=== PATIENT | male | born 1955 | race Caucasian/White ===

== ENCOUNTER 2017-10-14 08:03 | Emergency (ER) | payer BC ==
[2017-10-14] MEDS ORDERED: solu-MEDROL 125 MG IV ONE (08:41)
[2017-10-14] MEDS ORDERED: DUONEB 0.5-3 MG/3 ml Neb IH ONE ×2 (08:41→08:47)
[2017-10-14] MEDS ORDERED: TYLENOL 325 MG PO ONE (08:46)
--- NOTE | 2017-10-14 08:46 | ERPHSYRPT ---
- History of Present Illness Time Seen by Provider: 10/14/17 08:35 Source: patient Patient Subjective Stated Complaint: Pt states "I think I have that flu bug. Everyone is coming to work sick and now I am coughing, have chills, and body aches." Triage Nursing Assessment: Pt alert and oriented X 3, skin pwd. Pt ambulates without difficulty, able to speak in clear full sentences. 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 He has hx of COPD. He had on hand prednisone, zithromax, and nebs in case he got sick. Over the weekend he wasexposed to someone with flu syndrome and he started taking Zpack and prednisone 20mg daily. On nebs. He has worsened cough, malaise , chills. Some sputum production. He quit smoking several years ago. No V/D. No chest pains. Severity of Dyspnea-Max: moderate Severity of Dyspnea-Current: moderate Allergies/Adverse Reactions: No Known Drug Allergies Allergy (Unverified 10/14/17 08:21) Home Medications: Albuterol Sulfate [Ventolin Hfa] 1 puff IH DAILY 10/14/17 [History] Azithromycin 250 mg [Zithromax 250 MG TABLET] 250 mg PO STAT 10/14/17 [ History] Budesonide/Formoterol Fumarate [Symbicort 160-4.5 Mcg Inhaler] 1 puff IH DAILY 10/14/17 [History] Prednisone 20 mg [Deltasone 20 mg] 40 mg PO DAILY 10/14/17 [History] Promethazine/Dextromethorphan [Promethazine-Dm Syrup] 5 ml PO DAILY 10/14/17 [ History] Tiotropium [place] [Spiriva] 18 mcg IH DAILY 10/14/17 [History] Hx Tetanus, Diphtheria Vaccination/Date Given: Yes Hx Influenza Vaccination/Date Given: No Hx Pneumococcal Vaccination/Date Given: No Immunizations Up to Date: Yes - Review of Systems Constitutional: Chills, Malaise, No Fever Eyes: No Symptoms Ears, Nose, & Throat: Nose Congestion Respiratory: Cough, Wheezing Cardiac: No Chest Pain Abdominal/Gastrointestinal: No Abdominal Pain, No Nausea, No Vomiting, No Diarrhea Genitourinary Symptoms: No Dysuria Skin: No Rash Neurological: No Headache All Other Systems: Reviewed and Negative - Past Medical History Pertinent Past Medical History: Yes Neurological History: No Pertinent History ENT History: No Pertinent History Cardiac History: No Pertinent History Respiratory History: Asthma, COPD, Emphysema Endocrine Medical History: No Pertinent History Musculoskeletal History: No Pertinent History GI Medical History: No Pertinent History History: No Pertinent History Psycho-Social History: No Pertinent History Male Reproductive Disorders: No Pertinent History - Past Surgical History Past Surgical History: Yes Other Surgical History: l4, l5 removed. left knee. left shoulder. nose - Social History Smoking Status: Former smoker Exposure to second hand smoke: Yes Drug Use: none Patient Lives Alone: Yes - Nursing Vital Signs Nursing Vital Signs: Initial Vital Signs Temperature 100.0 F 10/14/17 08:13 Pulse Rate 84 10/14/17 08:13 Respiratory Rate 20 10/14/17 08:13 Blood Pressure 128/70 10/14/17 08:13 O2 Sat by Pulse Oximetry 94 L 10/14/17 08:13 Pain Scale Pain Intensity 0 - Physical Exam General Appearance: alert Eye Exam: PERRL/EOMI Neck Exam: normal inspection, non-tender, supple Respiratory Exam: wheezing (worse on left), No respiratory distress Cardiovascular/Chest Exam: regular rate/rhythm Abdominal/Gastrointestinal Exam: soft, No tenderness, No distention Extremity Exam: no calf tenderness, no pedal edema Neurologic Exam: alert, oriented x 3, cooperative, sensation nml, No motor deficits Skin Exam: warm, dry, No rash SpO2 Interpretation: normal SpO2: 94 Oxygen Delivery: Room Air - Course Nursing assessment & vital signs reviewed: Yes - Radiology Exams cxr X-ray Interpretation: Teleradiologist Report (bibasilar infiltrates/atelectasis/ effusion without CM) Ordered Tests: Active Orders 24 hr Category Date Time Status IV Insertion STAT Care 10/14/17 08:41 Active CHEST 2 VIEWS (PA AND LAT) Stat Exams 10/14/17 08:42 Completed BLOOD CULTURE Stat Lab 10/14/17 09:20 Ordered BMP Stat Lab 10/14/17 08:40 Completed CBC W DIFF Stat Lab 10/14/17 08:40 Completed Lactic Acid Stat Lab 10/14/17 08:50 Completed Manual Differential NC Stat Lab 10/14/17 08:40 Completed VENOUS BLOOD GAS Stat Lab 10/14/17 08:50 Completed Respiratory Nebulizer STAT RT 10/14/17 08:42 Completed Respiratory Nebulizer STAT RT 10/14/17 10:10 Completed Medication Summary Generic Name Dose Route Start Last Admin Trade Name Martín PRN Reason Stop Dose Admin Oseltamivir Phosphate 75 mg 10/14/17 22:00 10/14/17 10:13 Tamiflu 75mg Capsule PO 10/19/17 21:59 75 mg BID MENDOZA Administration Discontinued Medications Generic Name Dose Route Start Last Admin Trade Name Martín PRN Reason Stop Dose Admin Acetaminophen 650 mg 10/14/17 08:46 10/14/17 08:56 Tylenol 325 Mg PO 10/14/17 08:47 650 mg STAT ONE Administration Acetaminophen Confirm 10/14/17 08:54 Tylenol 325 Mg Administered 10/14/17 08:55 Dose 650 mg .ROUTE .STK-MED ONE Albuterol Sulfate 2.5 mg 10/14/17 10:10 10/14/17 10:26 Proventil 2.5 Mg/3 Ml Neb IH 10/14/17 10:11 2.5 mg STAT ONE Administration Albuterol Sulfate Confirm 10/14/17 10:23 Proventil 2.5 Mg/3 Ml Neb Administered 10/14/17 10:24 Dose 2.5 mg IH .STK-MED ONE Albuterol/Ipratropium 3 ml 10/14/17 08:41 10/14/17 08:55 Duoneb 0.5-3 Mg/3 Ml Neb IH 10/14/17 08:42 3 ml STAT ONE Administration Albuterol/Ipratropium Confirm 10/14/17 08:47 Duoneb 0.5-3 Mg/3 Ml Neb Administered 10/14/17 08:48 Dose 3 ml IH .STK-MED ONE Ceftriaxone Sodium/Dextrose 1 g in 50 mls @ 100 mls/hr 10/14/17 09:19 09:43 Rocephin 1 Gm-D5w 50 Ml Bag IV 10/14/17 09:48 100 mls/hr STAT STA Administration Ceftriaxone Sodium/Dextrose Confirm 10/14/17 09:37 Rocephin 1 Gm-D5w 50 Ml Bag Administered 10/14/17 09:38 Dose 1 g in 50 mls @ ud IV .STK-MED ONE Methylprednisolone Sodium Succinate 125 mg 10/14/17 08:41 10/14/17 08:57 Solu-Medrol 125 Mg IV 10/14/17 08:42 125 mg STAT ONE Administration Methylprednisolone Sodium Succinate Confirm 10/14/17 08:54 Solu-Medrol 125 Mg Administered 10/14/17 08:55 Dose 125 mg .ROUTE .STK-MED ONE Lab/Rad Data: Laboratory Result Diagrams 10/14/17 08:40 10/14/17 08:40 Laboratory Results 10/14/17 10/14/17 10/14/17 Range/Units 09:05 08:50 08:40 WBC (4.0-10.5) K/mm3 RBC (4.1-5.6) M/mm3 Hgb (12.5-18.0) gm/dl Hct (42-50) % MCV (78-100) fl MCH (26-32) pg MCHC (32-36) g/dl RDW (11.5-14.0) % Plt Count (150-450) K/mm3 MPV (6-9.5) fl Segmented Neutrophils (36.-66.) % Lymphocytes (Manual) (24-44) % Monocytes (Manual) (0.0-12.0) % Eosinophils (Manual) (0.00-3.0) % Differential Comment Platelet Estimate (NORMAL) VBG pH 7.42 (7.32-7.42) VBG pCO2 at Pat Temp 41 L (42-55) mm/Hg VBG pO2 at Pat Temp 41 H (25-40) mm/Hg VBG HCO3 26.6 (22-28) meq/L VBG O2 Sat ([place]) 84.3 L (95-100) VBG Base Excess 1.9 (-2.0-2.0) VBG Hemoglobin 12.8 VBG Carboxyhemoglobin 1.8 (0.0-6.9) % T HGB POC Potassium 3.8 (3.5-5.1) Sodium 139 (136-145) mEq/L Potassium 3.8 (3.5-5.1) mEq/L Chloride 105 (98-107) mEq/L Carbon Dioxide 25.6 (21-32) mEq/L Anion Gap 12.4 (5-15) MEQ/L BUN 16 (9-20) mg/dL Creatinine 0.81 (0.55-1.30) mg/dl Estimated GFR > 60 ML/MIN Glucose 147 H (70-110) MG/DL Lactic Acid 0.9 (0.4-2.0) Calcium 8.3 L (8.5-10.1) mg/dL Influenza Type A Ag POSITIVE (NEGATIVE) Influenza Type B Ag NEGATIVE (NEGATIVE) RSV (PCR) NEGATIVE (Negative) 10/14/17 Range/Units 08:40 WBC 5.5 (4.0-10.5) K/mm3 RBC 4.63 (4.1-5.6) M/mm3 Hgb 12.4 L (12.5-18.0) gm/dl Hct 39.5 L (42-50) % MCV 85.3 (78-100) fl MCH 26.7 (26-32) pg MCHC 31.4 L (32-36) g/dl RDW 14.9 H (11.5-14.0) % Plt Count 195 (150-450) K/mm3 MPV 10.0 H (6-9.5) fl Segmented Neutrophils 84 H (36.-66.) % Lymphocytes (Manual) 14 L (24-44) % Monocytes (Manual) 1 (0.0-12.0) % Eosinophils (Manual) 1 (0.00-3.0) % Differential Comment NORMAL Platelet Estimate NORMAL (NORMAL) VBG pH (7.32-7.42) VBG pCO2 at Pat Temp (42-55) mm/Hg VBG pO2 at Pat Temp (25-40) mm/Hg VBG HCO3 (22-28) meq/L VBG O2 Sat ([place]) (95-100) VBG Base Excess (-2.0-2.0) VBG Hemoglobin VBG Carboxyhemoglobin (0.0-6.9) % T HGB POC Potassium (3.5-5.1) Sodium (136-145) mEq/L Potassium (3.5-5.1) mEq/L Chloride (98-107) mEq/L Carbon Dioxide (21-32) mEq/L Anion Gap (5-15) MEQ/L BUN (9-20) mg/dL Creatinine (0.55-1.30) mg/dl Estimated GFR ML/MIN Glucose (70-110) MG/DL Lactic Acid (0.4-2.0) Calcium (8.5-10.1) mg/dL Influenza Type A Ag (NEGATIVE) Influenza Type B Ag (NEGATIVE) RSV (PCR) (Negative) - Progress Progress Note: 10/14/17 10:43 Feeling better after nebs. He has flu a with some pneumonia and COPD exac. He wants OP treatment. Will release with inst. Counseled pt/family regarding: lab results, diagnosis, need for follow-up, rad results - Departure Time of Disposition: 10:43 Departure Disposition: Home Clinical Impression: Influenza A, COPD exacerbation Condition: Fair Critical Care Time: No Referrals: DOCTOR,NO FAMILY [Primary Care Provider] - Instructions: Exacerbation of COPD (DC), Flu, Adult (DC) Additional Instructions: Rx ceftin. Rx prednisone to take 40mg every day for 3 days, 20mg a day for 3 days then 10 mg a day for 4 days. Rx tamiflu. Use your nebs every 4 hours. Off work until fever free for 24 hours and feeling better. Return for problems or concerns. Prescriptions: Cefuroxime Axetil 500 mg [Ceftin 500 mg] 1 tab PO BID #20 tablet Oseltamivir 75 mg [Tamiflu 75MG Capsule] 75 mg PO BID #9 cap Prednisone 20 mg [Deltasone 20 mg] 0 mg PO UD #20 tablet
[2017-10-14 08:52] LABS: Lactic Acid 0.9 (0.4-2.0); VBG BASE EXCESS 1.9 (-2.0-2.0); VBG CARBOXYHEMOGLOBIN 1.8 % T HGB (0.0-6.9); VBG HCO3- 26.6 meq/L (22-28); VBG HEMOGLOBIN 12.8; VBG O2 SATURATION 84.3 (95-100); VBG POTASSIUM 3.8 (3.5-5.1); VBG pH 7.42 (7.32-7.42)
[2017-10-14] MEDS ORDERED: solu-MEDROL 125 MG ONE (08:54)
[2017-10-14] MEDS ORDERED: TYLENOL 325 MG ONE (08:54)
[2017-10-14 09:01] LABS: Hematocrit 39.5 % (42-50); Hemoglobin 12.4 gm/dl (12.5-18.0); Mean Cell Volume 85.3 fl (78-100); Mean Corpuscular Hgb Concent. 31.4 g/dl (32-36); Platelet Count 195 K/mm3 (150-450); Red Blood Count 4.63 M/mm3 (4.1-5.6); Red Cell Distribution Width 14.9 % (11.5-14.0); White Blood Count 5.5 K/mm3 (4.0-10.5)
--- NOTE | 2017-10-14 09:04 | XRAY ---
Indication: Cough and short of breath. Comparison: None PA/lateral chest hyperinflated with small bibasilar effusions and adjacent infiltrates/atelectasis. Upper lungs clear. Heart is not enlarged. Vascularity is normal. Bony thorax intact with mild degenerative changes and previous left shoulder surgery. Impression: Bibasilar infiltrates/atelectasis/effusion without cardiomegaly.
[2017-10-14 09:16] LABS: Mean Corpuscular Hemoglobin 26.7 pg (26-32)
[2017-10-14] MEDS ORDERED: ROCEPHIN 1 Gm-D5w 50 ml Bag** 1 G/50 ML IVPB IV STA (09:19)
[2017-10-14 09:30] LABS: ANION GAP 12.4 MEQ/L (5-15); BLOOD UREA NITROGEN 16 mg/dL (9-20); CHLORIDE 105 mEq/L (98-107); Calcium 8.3 mg/dL (8.5-10.1); Carbon Dioxide 25.6 mEq/L (21-32); Creatinine 1 0.81 mg/dl (0.55-1.30); EST GLOMERULAR FILTRATION RATE > 60 ML/MIN; Glucose 147 MG/DL (70-110); Potassium 3.8 mEq/L (3.5-5.1); SODIUM 139 mEq/L (136-145)
[2017-10-14] MEDS ORDERED: ROCEPHIN 1 Gm-D5w 50 ml Bag** 1 G/50 ML IVPB IV ONE (09:37)
[2017-10-14 10:00] LABS: INFLUENZA A POSITIVE (NEGATIVE); INFLUENZA B NEGATIVE (NEGATIVE); RESPIRATORY SYNCTIAL VIRUS NEGATIVE (Negative)
[2017-10-14] MEDS ORDERED: PROVENTIL 2.5 MG/3 ML NEB IH ONE ×2 (10:10→10:23)
[2017-10-14] MEDS ORDERED: Tamiflu 75MG Capsule PO ONE (10:12)
[2017-10-14 10:32] LABS: Eosinophil 1 % (0.00-3.0); Lymphocytes 14 % (24-44); Monocyte 1 % (0.0-12.0); Neutrophils 84 % (36.-66.); Platelet Estimate NORMAL (NORMAL); Total Cells Counted 100
[2017-10-14 11:01] VITALS: BP 110/76; PULSE 76; O2SAT 96
[2017-10-14] MEDS ORDERED: Tamiflu 75MG Capsule PO SCH (22:00)
== END 2017-10-14 11:02 | disposition home or self-care (01) ==
LOC: ED 08:03
DX: J10.1 Influenza due to other identified influenza virus with other respiratory manifestations (principal); J44.1 Chronic obstructive pulmonary disease with (acute) exacerbation; J45.909 Unspecified asthma, uncomplicated; Z87.891 Personal history of nicotine dependence; Z79.899 Other long term (current) drug therapy
CPT/HCPCS: 36000; 36415; 71046; 80048; 82805; 83605; 85025; 87040; 87631; 94640; 96365; 99284; 99285; J0696; J2930; A9270-GY

== ENCOUNTER 2017-10-19 10:00 | Observation (INO) | payer BC ==
[2017-10-19] MEDS ORDERED: DUONEB 0.5-3 MG/3 ml Neb IH ONE ×2 (10:19→10:36)
[2017-10-19] MEDS ORDERED: solu-MEDROL 125 MG IV ONE (10:43)
[2017-10-19] MEDS ORDERED: Sodium Chloride 0.9% 1000 ML 1,000 ML IV STA (10:43)
--- NOTE | 2017-10-19 10:45 | ERPHSYRPT ---
- History of Present Illness Time Seen by Provider: 10/19/17 10:39 Source: patient Exam Limitations: no limitations Patient Subjective Stated Complaint: came in to er friday was diagnosed with influenze A took tamiflu and he has gotten worse in past 24 hrs Triage Nursing Assessment: pt alert and oriented x3, ambulates by self, gait is steady, pupils perrla3, patietn has wheezes bilateral anterior, course on right side, skin wamr dry and intact, mole on chest by breast bone, no other open areas noted, pulses equal bialteral radius. bowel sounds present x4, intermittant dry cough. Physician History: The patient is a 62-year-old male complaining of increasing shortness of breath for the past 2 days. 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 He has a history of COPD. He was seen in this ER on Friday and was diagnosed with influenza A infection. He did not receive his influenza vaccination this year. He was given Solu-Medrol and albuterol breathing treatments and sent home with prescriptions for Ceftin, steroids, and Tamiflu. He was feeling better on Friday and . By Friday he started to feel worse again. He has a dry cough again. His past medical history is significant only for COPD. Timing/Duration: day(s) (2), gradual onset, worse Activities at Onset: none Severity of Dyspnea-Max: moderate Severity of Dyspnea-Current: moderate Possible Cause: occasional episodes Modifying Factors: Improves With: albuterol inhaler Associated Symptoms: cough, wheezing, No productive cough Allergies/Adverse Reactions: No Known Drug Allergies Allergy (Unverified 10/14/17 08:21) Home Medications: Albuterol Sulfate [Ventolin Hfa] 1 puff IH DAILY 10/14/17 [History] Azithromycin 250 mg [Zithromax 250 MG TABLET] 250 mg PO STAT 10/14/17 [ History] Budesonide/Formoterol Fumarate [Symbicort 160-4.5 Mcg Inhaler] 1 puff IH DAILY 10/14/17 [History] Prednisone 20 mg [Deltasone 20 mg] 40 mg PO DAILY 10/14/17 [History] Promethazine/Dextromethorphan [Promethazine-Dm Syrup] 5 ml PO DAILY 10/14/17 [ History] Tiotropium [place] [Spiriva] 18 mcg IH DAILY 10/14/17 [History] Hx Tetanus, Diphtheria Vaccination/Date Given: Yes Hx Influenza Vaccination/Date Given: No Hx Pneumococcal Vaccination/Date Given: No Immunizations Up to Date: Yes - Review of Systems Constitutional: No Fever, No Chills Eyes: No Symptoms Ears, Nose, & Throat: No Symptoms Respiratory: Cough, Dyspnea, Dyspnea on Exertion (SEE), Wheezing Cardiac: No Chest Pain, No Edema, No Syncope Abdominal/Gastrointestinal: No Abdominal Pain, No Nausea, No Vomiting, No Diarrhea Genitourinary Symptoms: No Dysuria Musculoskeletal: No Back Pain, No Neck Pain Skin: No Rash Neurological: No Dizziness, No Focal Weakness, No Sensory Changes Psychological: No Symptoms Endocrine: No Symptoms Hematologic/Lymphatic: No Symptoms Immunological/Allergic: No Symptoms All Other Systems: Reviewed and Negative - Past Medical History Pertinent Past Medical History: Yes Neurological History: No Pertinent History ENT History: No Pertinent History Cardiac History: No Pertinent History Respiratory History: Asthma, COPD, Emphysema Endocrine Medical History: No Pertinent History Musculoskeletal History: No Pertinent History GI Medical History: No Pertinent History History: No Pertinent History Psycho-Social History: No Pertinent History Male Reproductive Disorders: No Pertinent History - Past Surgical History Past Surgical History: Yes Other Surgical History: l4, l5 removed. left knee. left shoulder. nose - Social History Smoking Status: Former smoker Exposure to second hand smoke: Yes Drug Use: none Patient Lives Alone: No - Nursing Vital Signs Nursing Vital Signs: Initial Vital Signs Temperature 99.4 F 10/19/17 10:00 Pulse Rate 85 10/19/17 10:00 Respiratory Rate 18 10/19/17 10:00 Blood Pressure 124/70 10/19/17 10:00 O2 Sat by Pulse Oximetry 93 L 10/19/17 10:00 Pain Scale Pain Intensity 0 - Physical Exam General Appearance: mild distress Eye Exam: PERRL/EOMI Ears, Nose, Throat Exam: hearing grossly normal Neck Exam: normal inspection, supple Respiratory Exam: diminished breath sounds, wheezing Cardiovascular/Chest Exam: normal heart sounds, regular rate/rhythm Abdominal/Gastrointestinal Exam: soft, No tenderness, No distention, No mass Rectal Exam: not done Extremity Exam: non-tender, normal range of motion, normal inspection, no calf tenderness, no pedal edema Neurologic Exam: alert, oriented x 3, 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, 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, sensation nml, No motor deficits Skin Exam: normal color, warm, No dry SpO2 Interpretation: normal SpO2: 93 Oxygen Delivery: Room Air - Radiology Exams Chest X-ray Interpretation: Interpreted by me, Infiltrates, Other (unchanged pleural effusions, bibasilar infiltrates/atelacstasis, comp CXR 10/14/17.) Ordered Tests: Active Orders 24 hr Category Date Time Status IV Insertion STAT Care 10/19/17 10:43 Active Oxygen-ED Only NASAL CANNULA 2 lpm Care 10/19/17 10:43 Active CHEST 2 VIEWS (PA AND LAT) Stat Exams 10/19/17 10:44 Taken CBC W DIFF Stat Lab 10/19/17 10:20 Completed CMP Stat Lab 10/19/17 10:20 Completed Lactic Acid Urgent Lab 10/19/17 10:36 Completed Manual Differential NC Stat Lab 10/19/17 10:20 Completed NT PRO BNP Stat Lab 10/19/17 10:20 Completed Respiratory Nebulizer STAT RT 10/19/17 10:36 Completed Medication Summary Discontinued Medications Generic Name Dose Route Start Last Admin Trade Name Freq PRN Reason Stop Dose Admin Albuterol/Ipratropium Confirm 10/19/17 10:19 Duoneb 0.5-3 Mg/3 Ml Neb Administered 10/19/17 10:20 Dose 3 ml IH .STK-MED ONE Albuterol/Ipratropium 3 ml 10/19/17 10:36 10/19/17 10:37 Duoneb 0.5-3 Mg/3 Ml Neb IH 10/19/17 10:37 3 ml STAT ONE Administration Sodium Chloride 1,000 mls @ 999 mls/hr 10/19/17 10:43 10/19/17 11:10 Sodium Chloride 0.9% 1000 Ml IV 10/19/17 11:43 999 mls/hr .Q1H1M STA Administration Sodium Chloride Confirm 10/19/17 10:57 Sodium Chloride 0.9% 1000 Ml Administered 10/19/17 10:58 Dose 1,000 mls @ ud .ROUTE .STK-MED ONE Methylprednisolone Sodium Succinate 125 mg 10/19/17 10:43 10/19/17 11:10 Solu-Medrol 125 Mg IV 10/19/17 10:44 125 mg STAT ONE Administration Methylprednisolone Sodium Succinate Confirm 10/19/17 10:57 Solu-Medrol 125 Mg Administered 10/19/17 10:58 Dose 125 mg .ROUTE .STK-MED ONE Lab/Rad Data: Laboratory Result Diagrams 10/19/17 10:20 10/19/17 10:20 Laboratory Results 10/19/17 10/19/17 10/19/17 Range/Units 10:36 10:20 10:20 WBC 11.6 H (4.0-10.5) K/mm3 RBC 4.69 (4.1-5.6) M/mm3 Hgb 12.7 (12.5-18.0) gm/dl Hct 39.6 L (42-50) % MCV 84.4 (78-100) fl MCH 27.1 (26-32) pg MCHC 32.1 (32-36) g/dl RDW 14.7 H (11.5-14.0) % Plt Count 215 (150-450) K/mm3 MPV 10.1 H (6-9.5) fl Segmented Neutrophils 76 H (36.-66.) % Lymphocytes (Manual) 16 L (24-44) % Monocytes (Manual) 8 (0.0-12.0) % Differential Comment NORMAL Platelet Estimate NORMAL (NORMAL) Sodium 141 (136-145) mEq/L Potassium 3.5 (3.5-5.1) mEq/L Chloride 103 (98-107) mEq/L Carbon Dioxide 27.0 (21-32) mEq/L Anion Gap 14.7 (5-15) MEQ/L BUN 12 (9-20) mg/dL Creatinine 0.80 (0.55-1.30) mg/dl Estimated GFR > 60 ML/MIN Glucose 259 H (70-110) MG/DL Lactic Acid 1.8 (0.4-2.0) Calcium 8.3 L (8.5-10.1) mg/dL Total Bilirubin 0.70 (0.2-1.0) mg/dL AST 14 L (15-37) U/L ALT 22 (12-78) U/L Alkaline Phosphatase 43 L (46-116) U/L NT-Pro-B Natriuret Pep 338 H (0-125) pg/ml Serum Total Protein 6.7 (6.4-8.2) gm/dL Albumin 2.8 L (3.4-5.0) g/dL - Progress Progress: improved Air Movement: good Blood Culture(s) Obtained: Yes Antibiotics given: No Discussed with DrJohana: Cyndy Cha Will see patient in: hospital (observation) Counseled pt/family regarding: lab results, diagnosis, rad results - Departure Time of Disposition: 13:12 Departure Disposition: Observation (per Dr Cyndy Hartman) Clinical Impression: Dyspnea, COPD (chronic obstructive pulmonary disease), CHF (congestive heart failure), Influenza A Condition: Stable Critical Care Time: No Referrals: DOCTOR,NO FAMILY [Primary Care Provider] - Instructions: Chronic Obstructive Pulmonary Disease, Heart Failure
[2017-10-19] MEDS ORDERED: solu-MEDROL 125 MG ONE (10:57)
[2017-10-19] MEDS ORDERED: Sodium Chloride 0.9% 1000 ML 1,000 ML ONE (10:57)
[2017-10-19 11:03] LABS: Granulocyte Absolute (ANC) 9.66 (1.4-6.9); Hematocrit 39.6 % (42-50); Hemoglobin 12.7 gm/dl (12.5-18.0); Mean Cell Volume 84.4 fl (78-100); Mean Corpuscular Hemoglobin 27.1 pg (26-32); Mean Corpuscular Hgb Concent. 32.1 g/dl (32-36); Mean Platelet Volume 10.1 fl (6-9.5); Platelet Count 215 K/mm3 (150-450); Red Blood Count 4.69 M/mm3 (4.1-5.6); Red Cell Distribution Width 14.7 % (11.5-14.0); White Blood Count 11.6 K/mm3 (4.0-10.5)
[2017-10-19 11:30] LABS: ALBUMIN 2.8 g/dL (3.4-5.0); ALKALINE PHOSPHATASE 43 U/L (46-116); ANION GAP 14.7 MEQ/L (5-15); BLOOD UREA NITROGEN 12 mg/dL (9-20); CHLORIDE 103 mEq/L (98-107); Calcium 8.3 mg/dL (8.5-10.1); EST GLOMERULAR FILTRATION RATE > 60 ML/MIN; Glucose 259 MG/DL (70-110); NT PRO BNP 338 pg/ml (0-125); Potassium 3.5 mEq/L (3.5-5.1); SGOT/AST 14 U/L (15-37); SGPT/ALT 22 U/L (12-78); SODIUM 141 mEq/L (136-145); Total Protein 6.7 gm/dL (6.4-8.2)
[2017-10-19 11:37] LABS: Lymphocytes 16 % (24-44); Monocyte 8 % (0.0-12.0); Neutrophils 76 % (36.-66.); Platelet Estimate NORMAL (NORMAL); Total Cells Counted 100
[2017-10-19] MEDS ORDERED: Zofran 4 MG/2 ML VIAL IV PRN (13:57)
[2017-10-19] MEDS ORDERED: TYLENOL 325 MG PO PRN (13:57)
[2017-10-19] MEDS ORDERED: PROVENTIL 2.5 MG/3 ML NEB IH SCH (15:00)
[2017-10-19] MEDS: DUONEB 0.5-3 MG/3 ml Neb IH SCH ×2 (15:07→18:50)
[2017-10-19] MEDS ORDERED: solu-MEDROL 40 MG IV SCH (15:45)
[2017-10-19] MEDS: Lasix 40 MG/4 ML IV SCH (16:03)
[2017-10-19] MEDS ORDERED: Robitussin-Dm Syrup PO PRN (16:36)
--- NOTE | 2017-10-19 20:52 | XRAY ---
Indication: Cough and short of breath. Comparison: October 14, 2017. PA/lateral chest unchanged again hyperinflated with bibasilar infiltrates/atelectasis/effusions. Heart and mediastinal structures within normal limits. No new abnormalities.
[2017-10-19] MEDS: Tamiflu 75MG Capsule PO SCH (21:08)
[2017-10-19] MEDS: solu-MEDROL 40 MG IV SCH (21:09)
[2017-10-19] MEDS: NovoLOG Insulin SQ PRN (21:09)
[2017-10-19] MEDS: PROVENTIL 2.5 MG/3 ML NEB IH PRN (23:35)
[2017-10-20] MEDS: solu-MEDROL 40 MG IV SCH ×3 (05:03→21:20)
[2017-10-20 05:44] LABS: A-aADO2 112; ABG HEMOGLOBIN 13.7; ABG POTASSIUM 4.2 (3.5-5.1); ABG SITE LEFT RADIAL; ALLEN TEST OK? YES; ARTERIAL BLD GAS O2 SATURATION 98.4 % (95-100); ARTERIAL BLOOD GAS BASE EXCESS 4.8 (-2.0-2.0); ARTERIAL BLOOD GAS FIO2 36 %; ARTERIAL BLOOD GAS PCO2 45 mmHg (35-45); ARTERIAL BLOOD GAS PO2 88 mmHg (75-100); ARTERIAL BLOOD GAS pH 7.43 (7.35-7.45); CARBOXYHEMOGLOBIN 1.5 % THgb (0.0-6.9); HCO3- 29.9 (22-28); HGB O2 SAT 96.3 g/dF (94-100); Methhemoglobin 0.7 % (1.4-1.5); paO2 pAO1 0.44
[2017-10-20 06:19] LABS: Granulocyte Absolute (ANC) 15.12 (1.4-6.9); Hematocrit 41.2 % (42-50); Hemoglobin 13.2 gm/dl (12.5-18.0); Mean Cell Volume 84.3 fl (78-100); Mean Platelet Volume 10.1 fl (6-9.5); Platelet Count 249 K/mm3 (150-450); Red Blood Count 4.89 M/mm3 (4.1-5.6); Red Cell Distribution Width 14.6 % (11.5-14.0); White Blood Count 16.9 K/mm3 (4.0-10.5)
[2017-10-20 06:24] LABS: ANION GAP 12.3 MEQ/L (5-15); BLOOD UREA NITROGEN 14 mg/dL (9-20); CHLORIDE 105 mEq/L (98-107); Calcium 9.2 mg/dL (8.5-10.1); Carbon Dioxide 28.6 mEq/L (21-32); Creatinine 1 0.74 mg/dl (0.55-1.30); EST GLOMERULAR FILTRATION RATE > 60 ML/MIN; Glucose 277 MG/DL (70-110); Potassium 4.2 mEq/L (3.5-5.1); SODIUM 142 mEq/L (136-145)
[2017-10-20] MEDS: ADVAIR 250-50 DISKUS 14 DOSE IH SCH ×2 (07:20→19:23)
[2017-10-20] MEDS: DUONEB 0.5-3 MG/3 ml Neb IH SCH ×4 (07:20→19:23)
--- NOTE | 2017-10-20 09:18 | XRAY ---
Indication: Cough, congestion, and chest tightness. Flu. Comparison: One day earlier. PA/lateral chest unchanged again hyperinflated with bibasilar infiltrates/atelectasis/effusions again left greater than right. Heart is not enlarged. No new cardiopulmonary abnormalities.
[2017-10-20] MEDS ORDERED: ROCEPHIN 1 Gm-D5w 50 ml Bag** 1 G/50 ML IVPB IV SCH (10:00)
[2017-10-20] MEDS ORDERED: Zithromax 500 MG/ 250 ML NaCl Premix 500 MG/250 ML IVPB IV SCH (10:00)
[2017-10-20] MEDS ORDERED: Ventolin Hfa MDI IH SCH (10:00)
[2017-10-20] MEDS: Tamiflu 75MG Capsule PO SCH ×2 (10:17→21:22)
[2017-10-20] MEDS: ENOXAPARIN SODIUM SQ SCH (10:17)
[2017-10-20] MEDS: Lasix 40 MG/4 ML IV SCH ×2 (10:18→16:50)
[2017-10-20 11:04] LABS: BAND 8 % (0.0-2.0); Neutrophils 92 % (36.-66.); Platelet Estimate NORMAL (NORMAL)
[2017-10-20] MEDS: Spiriva 18 Mcg/Cap Inhaler IH SCH (11:13)
[2017-10-20] MEDS: NovoLOG Insulin SQ PRN ×3 (11:34→21:49)
--- NOTE | 2017-10-20 11:55 | PCM.HP ---
History of Present Illness - Chief Complaint Chief Complaint: fever cough and shortness of breath for 2-3 days History of Present Illness: is a 62 year old male complaining of increasing shortness of breath for the past 2 days. 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 He has a history of COPD. He was seen in this ER on Friday and was diagnosed with influenza A infection. He did not receive his influenza vaccination this year. He was given Solu-Medrol and albuterol breathing treatments and sent home with prescriptions for Ceftin, steroids, and Tamiflu. He was feeling better on Friday and . By Friday he started to feel worse again. He has a dry cough again. - Review of Systems Constitutional: Fever, Chills, Malaise Eyes: No Symptoms Ears, Nose, & Throat: No Symptoms Respiratory: Cough, Orthopnea, Short Of Breath, Wheezing Cardiac: No Chest Pain, No Edema, No Syncope Abdominal/Gastrointestinal: No Abdominal Pain, No Nausea, No Vomiting, No Diarrhea Genitourinary Symptoms: No Dysuria Musculoskeletal: No Back Pain, No Neck Pain Skin: No Rash Neurological: No Dizziness, No Focal Weakness, No Sensory Changes Psychological: No Symptoms Endocrine: No Symptoms Hematologic/Lymphatic: No Symptoms Immunological/Allergic: No Symptoms Medications & Allergies Home Medications: Home Medication List Albuterol Sulfate [Ventolin Hfa] 1 puff IH DAILY 10/14/17 [History Confirmed ] Budesonide/Formoterol Fumarate [Symbicort 160-4.5 Mcg Inhaler] 1 puff IH DAILY 10/14/17 [History Confirmed 10/19/17] Cefuroxime Axetil 500 mg [Ceftin 500 mg] 1 tab PO BID #20 tablet 10/14/17 [Rx Confirmed 10/19/17] Oseltamivir 75 mg [Tamiflu 75MG Capsule] 75 mg PO BID #9 cap 10/14/17 [Rx Confirmed 10/19/17] Prednisone 20 mg [Deltasone 20 mg] 40 mg PO DAILY 10/14/17 [History Confirmed 10/19/17] Promethazine/Dextromethorphan [Promethazine-Dm Syrup] 5 ml PO Q4HPRN PRN [History Confirmed 10/19/17] Tiotropium [place] [Spiriva] 18 mcg IH DAILY 10/14/17 [History Confirmed ] Allergies/Adverse Reactions: Allergies Allergy/AdvReac Type Severity Reaction Status Date / Time No Known Drug Allergies Allergy Unverified 10/14/17 08:21 - Past Medical History Past Medical History: Yes Neurological History: No Pertinent History ENT History: No Pertinent History Cardiac History: No Pertinent History Respiratory History: Asthma, COPD, Emphysema Endocrine Medical History: No Pertinent History Musculoskelatal History: No Pertinent History GI Medical History: No Pertinent History History: No Pertinent History Pyscho-Social History: No Pertinent History Male Reproductive Disorders: No Pertinent History - Past Surgical History Past Surgical History: Yes Other Surgical History: l4, l5 removed. left knee. left shoulder. nose - Social History Smoking Status: Former smoker How long have you smoked: 30 Exposure to second hand smoke: No Alcohol: None Drug Use: none - Physical Exam Vital Signs: Vital Signs - 24 hr Temp Pulse Resp BP Pulse Ox 10/20/17 11:17 70 18 95 10/20/17 11:14 98.9 F 73 20 122/73 94 L 10/20/17 07:38 98.3 F 78 22 129/67 92 L 10/20/17 07:35 72 20 94 L 10/20/17 06:00 20 10/20/17 04:00 98.5 F 69 21 116/58 93 L 10/20/17 02:00 21 10/20/17 00:00 97.6 F 70 21 142/73 92 L 10/19/17 23:39 70 21 92 L 10/19/17 22:00 22 10/19/17 20:00 98.4 F 74 22 136/67 90 L 10/19/17 19:00 74 22 88 L 10/19/17 18:00 18 10/19/17 15:49 98.0 F 74 18 160/76 92 L 10/19/17 15:04 83 18 97 10/19/17 14:43 22 10/19/17 14:40 98.2 F 78 22 163/78 91 L 10/19/17 14:37 98.2 F 78 22 163/78 91 L 10/19/17 14:16 98.2 F 78 22 163/78 91 L 10/19/17 14:14 98.2 F 78 163/78 10/19/17 13:56 98.2 F 78 22 163/78 91 L 10/19/17 13:50 98.2 F 78 22 163/78 91 L 10/19/17 13:19 93 L 10/19/17 13:08 76 20 164/82 95 10/19/17 12:40 99.0 F 78 18 98 10/19/17 11:57 80 22 114/63 95 Oxygen-Last 24 hours O2 Percentage 4 Liters = 36% O2 Percentage 4 Liters = 36% O2 Percentage 3 Liters = 32% O2 Percentage 2 Liters = 28% O2 Percentage 2 Liters = 28% O2 Percentage 2 Liters = 28% O2 Percentage 2 Liters = 28% O2 Percentage 2 Liters = 28% O2 Percentage 2 Liters = 28% O2 Percentage 2 Liters = 28% O2 Percentage 2 Liters = 28% General Appearance: no apparent distress, alert Neurologic Exam: alert, oriented x 3, cooperative, normal mood/affect, nml cerebellar function, nml station & gait, sensation nml, No motor deficits Eye Exam: PERRL/EOMI, eyes nml inspection Ears, Nose, Throat Exam: normal ENT inspection, TMs normal, pharynx normal, moist mucous membranes Neck Exam: normal inspection, non-tender, supple, full range of motion Respiratory Exam: respiratory distress, diminished breath sounds, crackles/rales , rhonchi, wheezing Cardiovascular Exam: regular rate/rhythm, normal heart sounds, normal peripheral pulses Gastrointestinal/Abdomen Exam: soft, normal bowel sounds, No tenderness, No mass Back Exam: normal inspection, normal range of motion, No CVA tenderness, No vertebral tenderness Extremity Exam: normal inspection, normal range of motion, pelvis stable Skin Exam: normal color, warm, dry, No rash Lymphatic Exam: No adenopathy Results - Labs Lab/Micro Results: Accuchecks Date 10/19/17 Date 10/19/17 Time 20:00 Time 16:00 Accucheck Value: 487 Accucheck Value: 257 Lab Results-Last 24 Hours 10/20/17 10/20/17 10/20/17 Range/Units 05:20 05:20 05:30 WBC 16.9 H (4.0-10.5) K/mm3 RBC 4.89 (4.1-5.6) M/mm3 Hgb 13.2 (12.5-18.0) gm/dl Hct 41.2 L (42-50) % MCV 84.3 (78-100) fl MCH 27.0 (26-32) pg MCHC 32.0 (32-36) g/dl RDW 14.6 H (11.5-14.0) % Plt Count 249 (150-450) K/mm3 MPV 10.1 H (6-9.5) fl Segmented Neutrophils 92 H (36.-66.) % Band Neutrophils 8 H (0.0-2.0) % Differential Comment NORMAL Platelet Estimate NORMAL (NORMAL) Puncture Site pCO2 (35-45) mmHg pO2 (75-100) mmHg Base Excess (-2.0-2.0) O2 Saturation (94-100) g/dF ABG pH (7.35-7.45) ABG HCO3 (22-28) ABG O2 Sat (Measured) (95-100) % Ryan Test A-a Gradient a/A Ratio Hemoglobin Carboxyhemoglobin (0.0-6.9) % THgb Methemoglobin (1.4-1.5) % Temperature C POC O2 Flow Rate % Sodium 142 (136-145) mEq/L Potassium 4.2 (3.5-5.1) mEq/L Chloride 105 (98-107) mEq/L Carbon Dioxide 28.6 (21-32) mEq/L Anion Gap 12.3 (5-15) MEQ/L BUN 14 (9-20) mg/dL Creatinine 0.74 (0.55-1.30) mg/dl Estimated GFR > 60 ML/MIN Glucose 277 H (70-110) MG/DL Lactic Acid 1.1 (0.4-2.0) Calcium 9.2 (8.5-10.1) mg/dL 10/20/17 Range/Units 05:30 WBC (4.0-10.5) K/mm3 RBC (4.1-5.6) M/mm3 Hgb (12.5-18.0) gm/dl Hct (42-50) % MCV (78-100) fl MCH (26-32) pg MCHC (32-36) g/dl RDW (11.5-14.0) % Plt Count (150-450) K/mm3 MPV (6-9.5) fl Segmented Neutrophils (36.-66.) % Band Neutrophils (0.0-2.0) % Differential Comment Platelet Estimate (NORMAL) Puncture Site LEFT RADIAL pCO2 45 (35-45) mmHg pO2 88 (75-100) mmHg Base Excess 4.8 H (-2.0-2.0) O2 Saturation 96.3 (94-100) g/dF ABG pH 7.43 (7.35-7.45) ABG HCO3 29.9 H* (22-28) ABG O2 Sat (Measured) 98.4 (95-100) % Ryan Test YES A-a Gradient 112 a/A Ratio 0.44 Hemoglobin 13.7 Carboxyhemoglobin 1.5 (0.0-6.9) % THgb Methemoglobin 0.7 L (1.4-1.5) % Temperature 37.0 C POC O2 Flow Rate 36 % Sodium (136-145) mEq/L Potassium 4.2 (3.5-5.1) mEq/L Chloride (98-107) mEq/L Carbon Dioxide (21-32) mEq/L Anion Gap (5-15) MEQ/L BUN (9-20) mg/dL Creatinine (0.55-1.30) mg/dl Estimated GFR ML/MIN Glucose (70-110) MG/DL Lactic Acid (0.4-2.0) Calcium (8.5-10.1) mg/dL Accuchecks Date 10/19/17 Date 10/19/17 Time 20:00 Time 16:00 Accucheck Value: 487 Accucheck Value: 257 - Radiology Impressions Radiology Exams & Impressions: Radiology Procedures Category Date Time Status CHEST 2 VIEWS (PA AND LAT) DAILY Exams 10/20/17 08:37 Completed - Other Procedures and Tests Respiratory Therapy 10/19/17 15:04 Respiratory Nebulizer QID 10/19/17 15:06 Respiratory Nebulizer PRN 10/20/17 07:00 Peak Expiratory Flow Rate DAILY Respiratory MDI BID 10/21/17 07:00 Respiratory MDI UD Assessment/Plan (1) COPD (chronic obstructive pulmonary disease) Current Visit: Yes Status: Acute Qualifiers: COPD type: COPD with acute lower respiratory infection Qualified Code(s): J44.0 - Chronic obstructive pulmonary disease with acute lower respiratory infection (2) Influenza A Current Visit: Yes Status: Acute Code(s): J10.1 - FLU DUE TO OTH IDENT INFLUENZA VIRUS W OTH RESP MANIFEST
[2017-10-20] MEDS: PROVENTIL 2.5 MG/3 ML NEB IH PRN (23:27)
[2017-10-21] MEDS: solu-MEDROL 40 MG IV SCH ×2 (04:23→11:47)
[2017-10-21 05:53] LABS: Hematocrit 39.2 % (42-50); Hemoglobin 12.5 gm/dl (12.5-18.0); Mean Cell Volume 84.5 fl (78-100); Mean Corpuscular Hemoglobin 26.9 pg (26-32); Mean Corpuscular Hgb Concent. 31.9 g/dl (32-36); Mean Platelet Volume 10.4 fl (6-9.5); Platelet Count 269 K/mm3 (150-450); Red Blood Count 4.64 M/mm3 (4.1-5.6); Red Cell Distribution Width 14.7 % (11.5-14.0)
[2017-10-21] MEDS: DUONEB 0.5-3 MG/3 ml Neb IH SCH ×2 (07:30→11:24)
[2017-10-21] MEDS: ADVAIR 250-50 DISKUS 14 DOSE IH SCH (07:30)
[2017-10-21] MEDS: Spiriva 18 Mcg/Cap Inhaler IH SCH (07:44)
[2017-10-21] MEDS: NovoLOG Insulin SQ PRN ×2 (07:47→11:47)
[2017-10-21] MEDS ORDERED: Zithromax 250 MG TABLET PO SCH (10:00)
[2017-10-21] MEDS: Lasix 40 MG/4 ML IV SCH (10:04)
[2017-10-21] MEDS: ENOXAPARIN SODIUM SQ SCH (10:04)
[2017-10-21] MEDS: Tamiflu 75MG Capsule PO SCH (10:05)
--- NOTE | 2017-10-21 13:03 | PCM.DS ---
Discharge Summary Date of Admission: 10/19/17 13:53 Admitting Physician: BRANT CALDWELL Primary Care Provider: BRANT CALDWELL Allergies Allergies No Known Drug Allergies Allergy (Unverified 10/14/17 08:21) Hospital Summary - Hospital Course Hospital Course: Last Vital Signs Temp 98.4 F 10/21/17 07:45 Pulse 65 10/21/17 11:57 Resp 16 10/21/17 11:57 BP 133/76 10/21/17 07:45 Pulse Ox 97 10/21/17 11:57 Allergies No Known Drug Allergies Allergy (Unverified 10/14/17 08:21) Active Medications Acetaminophen (Tylenol 325 Mg) 650 mg PO Q4H PRN PRN PRN Reason: PAIN AND/OR FEVER Stop: 11/18/17 13:56 Albuterol Sulfate (Proventil 2.5 Mg/3 Ml Neb) 2.5 mg IH Q4H PRN PRN PRN Reason: SHORTNESS OF BREATH/WHEEZING Stop: 11/18/17 14:48 Last Admin: 10/20/17 23:27 Dose: 2.5 mg Albuterol/Ipratropium (Duoneb 0.5-3 Mg/3 Ml Neb) 3 ml IH QIDRT [facility] Stop: 11/18/17 14:59 Last Admin: 10/21/17 11:24 Dose: 3 ml Azithromycin (Zithromax 250 Mg Tablet) 500 mg PO DAILY [facility] Stop: 11/20/17 09:59 Last Admin: 10/21/17 10:04 Dose: 500 mg Enoxaparin Sodium (Enoxaparin Sodium) 40 mg SQ DAILY [facility] Stop: 11/19/17 09:59 Last Admin: 10/21/17 10:04 Dose: 40 mg Furosemide (Lasix 40 Mg/4 Ml) 40 mg IV BID [facility] Stop: 11/18/17 16:59 Last Admin: 10/21/17 10:04 Dose: 40 mg Guaifenesin/Dextromethorphan (Robitussin-Dm Syrup) 5 ml PO Q4H PRN PRN PRN Reason: COUGH Stop: 11/18/17 16:35 Insulin Aspart (Novolog Insulin) 0 unit SQ UD PRN PRN Reason: HYPERGLYCEMIA Stop: 11/18/17 20:38 Last Admin: 10/21/17 11:47 Dose: 7 unit Methylprednisolone Sodium Succinate (Solu-Medrol 40 Mg) 40 mg IV Q8H [facility] Stop: 11/18/17 19:59 Last Admin: 10/21/17 11:47 Dose: 40 mg Ondansetron HCl (Zofran 4 Mg/2 Ml Vial) 4 mg IV Q6H PRN PRN PRN Reason: NAUSEA/VOMITING Stop: 11/18/17 13:56 Oseltamivir Phosphate (Tamiflu 75mg Capsule) 75 mg PO BID [facility] Stop: 10/24/17 10:01 Last Admin: 10/21/17 10:05 Dose: 75 mg Fluticasone/Salmeterol (Advair 250-50 Diskus 14 Dose) 1 each IH BIDRT [facility] Stop: 11/19/17 06:59 Last Admin: 10/21/17 07:30 Dose: 1 each Tiotropium [place] (Spiriva 18 Mcg/Cap Inhaler) 1 ea IH DAILY [facility] Stop: 11/19/17 09:59 Last Admin: 10/21/17 07:44 Dose: 1 ea Intake & Output 10/21/17 10/22/17 11:59 11:59 Intake Total 2500 Balance 2500 Weight 124.6 kg Orders 10/21/17 07:00 Respiratory MDI UD 10/21/17 10:00 Azithromycin 250 mg [Zithromax 250 MG TABLET] 500 mg PO DAILY Lab Tests 10/20/17 10/21/17 10/21/17 05:20 05:45 05:45 WBC 17.0 H RBC 4.64 Hgb 12.5 Hct 39.2 L MCV 84.5 MCH 26.9 MCHC 31.9 L RDW 14.7 H Plt Count 269 MPV 10.4 H Hemoglobin A1c 6.9 H NT-Pro-B Natriuret Pep 341 H Microbiology 10/19/17 14:10 Blood Blood Culture - Preliminary NO GROWTH TO DATE 10/19/17 10:20 Blood Blood Culture - Preliminary NO GROWTH TO DATE - Vitals & Intake/Output Vital Signs: Vital Signs Temperature 98.4 F 10/21/17 07:45 Pulse Rate 65 10/21/17 11:57 Respiratory Rate 16 10/21/17 11:57 Blood Pressure 133/76 10/21/17 07:45 O2 Sat by Pulse Oximetry 97 10/21/17 11:57 Oxygen-Last Documented O2 Percentage 2 Liters = 28% Intake & Output: Intake & Output 10/19/17 10/20/17 10/21/17 10/22/17 11:59 11:59 11:59 11:59 Intake Total 1800 2500 Balance 1800 2500 Weight 126.2 kg 124.6 kg - Lab Result Diagrams: 10/21/17 05:45 10/20/17 05:20 Lab Results-Last 24 Hrs: Accuchecks Date 10/20/17 Time 16:00 Accucheck Value: 287 Accucheck Value: 291 Accucheck Value: 335 Accucheck Value: 357 Lab Results-Last 24 Hours 10/20/17 10/21/17 10/21/17 Range/Units 05:20 05:45 05:45 WBC 17.0 H (4.0-10.5) K/mm3 RBC 4.64 (4.1-5.6) M/mm3 Hgb 12.5 (12.5-18.0) gm/dl Hct 39.2 L (42-50) % MCV 84.5 (78-100) fl MCH 26.9 (26-32) pg MCHC 31.9 L (32-36) g/dl RDW 14.7 H (11.5-14.0) % Plt Count 269 (150-450) K/mm3 MPV 10.4 H (6-9.5) fl Hemoglobin A1c 6.9 H (4.5-6.2) NT-Pro-B Natriuret Pep 341 H (0-125) pg/ml Micro Results-Entire Visit: Microbiology 10/19/17 14:10 Blood Culture - Preliminary Blood NO GROWTH TO DATE Accuchecks Date 10/20/17 Time 16:00 Accucheck Value: 287 Accucheck Value: 291 Accucheck Value: 335 Accucheck Value: 357 - Radiology Exams Ordered Rad Exams-Entire Visit: Radiology Procedures Category Date Time Status CHEST 2 VIEWS (PA AND LAT) DAILY Exams 10/20/17 08:37 Completed - Procedures and Test Procedures and Tests throughout Hospitalization: Therapy Orders & Screens 10/19/17 15:04 Respiratory Nebulizer QID Comment: Diagnosis: flu A 10/19/17 15:06 Respiratory Nebulizer PRN Comment: Diagnosis: flu A 10/20/17 07:00 Peak Expiratory Flow Rate DAILY Comment: Reason For Exam: Diagnosis: flu A Respiratory MDI BID Comment: ADVAIR 250/50 BID Diagnosis: flu A 10/21/17 07:00 Respiratory MDI UD Comment: SPIRIVA DAILY Diagnosis: flu A Discharge Exam General Appearance: no apparent distress, alert Neurologic Exam: alert, oriented x 3, cooperative, normal mood/affect, nml cerebellar function, sensation nml, No motor deficits Skin Exam: normal color, warm, dry Eye Exam: PERRL, EOMI, eyes nml inspection Ears, Nose, Throat Exam: normal ENT inspection, pharynx normal, moist mucous membranes Neck Exam: normal inspection, non-tender, supple, full range of motion Respiratory Exam: normal breath sounds, lungs clear, No respiratory distress Cardiovascular Exam: regular rate/rhythm, normal heart sounds Gastrointestinal/Abdomen Exam: soft, No tenderness, No mass Extremity Exam: normal inspection, normal range of motion Back Exam: normal inspection, normal range of motion, No CVA tenderness, No vertebral tenderness Male Genitalia Exam: deferred Rectal Exam: deferred Final Diagnosis/Problem List - Final Discharge Diagnosis/Problem (1) Influenza A Current Visit: Yes Status: Acute Assessment & Plan: will d/c home on tamiflu 3 more days (2) COPD (chronic obstructive pulmonary disease) Current Visit: Yes Status: Chronic - Discharge Discharge Date: 10/21/17 Disposition: Home, Self-Care Condition: Stable Prescriptions: New Oseltamivir 75 mg [Tamiflu 75MG Capsule] 75 mg PO BID #6 cap Continue Tiotropium [place] [Spiriva] 18 mcg IH DAILY Promethazine/Dextromethorphan [Promethazine-Dm Syrup] 5 ml PO Q4HPRN PRN PRN Reason: Cough Prednisone 20 mg [Deltasone 20 mg] 40 mg PO DAILY Budesonide/Formoterol Fumarate [Symbicort 160-4.5 Mcg Inhaler] 1 puff IH DAILY Albuterol Sulfate [Ventolin Hfa] 1 puff IH DAILY Oseltamivir 75 mg [Tamiflu 75MG Capsule] 75 mg PO BID #9 cap Cefuroxime Axetil 500 mg [Ceftin 500 mg] 1 tab PO BID #20 tablet Follow up with: BRANT CALDWELL [Primary Care Provider] - 1 Week
[2017-10-21 13:23] VITALS: BP 176/83; PULSE 80; O2SAT 93
== END 2017-10-21 13:52 | disposition home or self-care (01) ==
LOC: ED 10:00 → MED SURG 13:53
PROVIDERS: ADMIT General Practice; ATTEND General Practice
DX: J10.1 Influenza due to other identified influenza virus with other respiratory manifestations (principal); J44.9 Chronic obstructive pulmonary disease, unspecified; J45.909 Unspecified asthma, uncomplicated; Z87.891 Personal history of nicotine dependence
CPT/HCPCS: 36000; 36415; 36600; 71046; 80048; 80053; 82375; 82803; 82962; 83036; 83605; 83880; 85025; 85027; 87040; 93041; 94150; 94640; 94760; 96360; 96361; 96374; 99285; G0378; J0456; J0696; J1650; J1940; J2920; J2930; A9270-GY

== ENCOUNTER 2017-11-10 11:06 | Inpatient (IN) | payer BC ==
[2017-11-10] MEDS ORDERED: DUONEB 0.5-3 MG/3 ml Neb IH ONE ×2 (11:17→11:31)
[2017-11-10] MEDS ORDERED: solu-MEDROL 125 MG IV ONE (11:17)
--- NOTE | 2017-11-10 11:23 | ERPHSYRPT ---
- History of Present Illness Time Seen by Provider: 11/10/17 11:19 Source: patient Exam Limitations: no limitations Physician History: 62-year-old white male arrives with complaint of cough shortness of breath symptoms for 2 days. Patient states that he began having a loose cough 2 days ago felt short of breath this become progressively worse. Patient has no fever no nausea no vomiting. Patient was recently admitted to the hospital for influenza and COPD the end of September. Past medical history includes COPD, asthma, emphysema. Past surgical history includes L4-L5 removed left knee surgery left shoulder surgery no surgery. Social history patient denies tobacco alcohol or illicit drug use Timing/Duration: day(s) (2 days) Severity: moderate Modifying Factors: Improves With: medication (patient has been using an albuterol inhaler) Associated Symptoms: shortness of breath, cough, No nausea, No vomiting, No abdominal pain, No heartburn, No diaphoresis, No chills, No chest pain, No fever , No headaches, No loss of appetite, No malaise, No rash, No syncope, No seizure , No weakness Allergies/Adverse Reactions: No Known Drug Allergies Allergy (Unverified 10/14/17 08:21) Home Medications: Albuterol Sulfate [Ventolin Hfa] 1 puff IH DAILY 10/14/17 [History] Budesonide/Formoterol Fumarate [Symbicort 160-4.5 Mcg Inhaler] 1 puff IH DAILY 10/14/17 [History] Prednisone 20 mg [Deltasone 20 mg] 10 mg PO DAILY 10/14/17 [History] Promethazine/Dextromethorphan [Promethazine-Dm Syrup] 5 ml PO Q4HPRN PRN [History] Tiotropium [place] [Spiriva] 18 mcg IH DAILY 10/14/17 [History] Hx Tetanus, Diphtheria Vaccination/Date Given: Yes Hx Influenza Vaccination/Date Given: No Hx Pneumococcal Vaccination/Date Given: No - Review of Systems Constitutional: No Fever, No Chills Eyes: No Symptoms Ears, Nose, & Throat: No Symptoms Respiratory: Cough, Dyspnea, Wheezing, No Cyanosis, No Dyspnea on Exertion (SEE) , No Stridor Cardiac: No Chest Pain, No Edema, No Syncope Abdominal/Gastrointestinal: No Abdominal Pain, No Nausea, No Vomiting, No Diarrhea Genitourinary Symptoms: No Dysuria Musculoskeletal: No Back Pain, No Neck Pain Skin: No Rash Neurological: No Dizziness, No Focal Weakness, No Sensory Changes Psychological: No Symptoms Endocrine: No Symptoms All Other Systems: Reviewed and Negative - Past Medical History Pertinent Past Medical History: Yes Neurological History: No Pertinent History ENT History: No Pertinent History Cardiac History: No Pertinent History Respiratory History: Asthma, COPD, Emphysema Endocrine Medical History: No Pertinent History Musculoskeletal History: No Pertinent History GI Medical History: No Pertinent History History: No Pertinent History Psycho-Social History: No Pertinent History Male Reproductive Disorders: No Pertinent History - Past Surgical History Past Surgical History: Yes Other Surgical History: l4, l5 removed. left knee. left shoulder. nose - Social History Smoking Status: Former smoker How long have you smoked: 30 Exposure to second hand smoke: No Drug Use: none Patient Lives Alone: No - Nursing Vital Signs Nursing Vital Signs: Initial Vital Signs Temperature 98.8 F 11/10/17 11:20 Pulse Rate 112 H 11/10/17 11:20 Respiratory Rate 24 11/10/17 11:20 Blood Pressure 128/87 11/10/17 11:20 O2 Sat by Pulse Oximetry 90 L 11/10/17 11:20 Pain Scale Pain Intensity 6 - Physical Exam General Appearance: mild distress Eye Exam: PERRL/EOMI, eyes nml inspection Ears, Nose, Throat Exam: normal ENT inspection, TMs normal, pharynx normal, moist mucous membranes Neck Exam: normal inspection, non-tender, supple, full range of motion Respiratory Exam: diminished breath sounds, rhonchi, wheezing, No chest tenderness Cardiovascular Exam: regular rate/rhythm, normal heart sounds, normal peripheral pulses Gastrointestinal/Abdomen Exam: soft, normal bowel sounds, No tenderness, No mass Back Exam: normal inspection, normal range of motion, No CVA tenderness, No vertebral tenderness Extremity Exam: normal inspection, normal range of motion, pelvis stable Neurologic Exam: alert, oriented x 3, cooperative, normal mood/affect, nml cerebellar function, nml station & gait, sensation nml, No motor deficits Skin Exam: normal color, warm, dry, No rash Lymphatic Exam: No adenopathy SpO2 Interpretation: normal (93%) - Course Nursing assessment & vital signs reviewed: Yes EKG Interpreted by Me: RATE (101 bpm), Sinus Rhythm, NORMAL AXIS, Other (EKG: Sinus tachycardia 101 bpm normal axis, no acute ST or T wave changes essentially normal EKG) - Radiology Exams Chest X-ray Interpretation: Discussed w/ radiologist (chest x-raycolon PA/lateral chest unchanged again demonstrating bi basilar infiltrates/atelectasis/ effusions. Upper lungs clear heart is not enlarged no new cardiopulmonary abnormalities) - CT Exams Chest CT Interpretation: Discussed w/radiologist, Other (CT chest: Impression: 1. Negative pulmonary embolism 2. Moderate bilateral pleural effusions without cardiomegaly 3. Patchy right upper lobe interstitial alveolar opacities. 4. Incidental right hilar calcified nodes, fatty liver, and splenomegaly.) Ordered Tests: Active Orders 24 hr Category Date Time Status Bedrest with BRP/BSC ROUTINE Activity 11/10/17 15:56 Active Accucheck ACHS Care 11/10/17 15:56 Active Admit as Inpatient ROUTINE Care 11/10/17 15:56 Active Call Admit Doctor for Orders ON ADMISSION Care 11/10/17 15:56 Active Code Status Order ROUTINE Care 11/10/17 15:56 Active IV Care Q6H Care 11/10/17 15:56 Active Telemetry ROUTINE Care 11/10/17 15:56 Active Weight,Daily 0600 Care 11/10/17 15:56 Active Consult Pulmonology ROUTINE Cons 11/10/17 15:56 Active Cardiac Diet Diet 11/10/17 Dinner Active CHEST 2 VIEWS (PA AND LAT) Stat Exams 11/10/17 11:18 Completed CHEST WITH CONTRAST [CT] Stat Exams 11/10/17 13:27 Completed BLOOD CULTURE Stat Lab 11/10/17 15:05 Received CBC W DIFF AM.LAB Lab 11/11/17 04:00 Ordered CBC W DIFF Stat Lab 11/10/17 11:40 Completed CMP AM.LAB Lab 11/11/17 04:00 Ordered CMP Stat Lab 11/10/17 11:40 Completed CULTURE,SPUTUM Stat Lab 11/10/17 11:18 Uncollected D-DIMER QUANTITATION Stat Lab 11/10/17 11:40 Completed Manual Differential NC Stat Lab 11/10/17 11:40 Completed NT PRO BNP Stat Lab 11/10/17 11:40 Completed VENOUS BLOOD GAS Stat Lab 11/10/17 11:17 Completed Oxygen NASAL CANNULA 4 lpm RT 11/10/17 15:56 Active Respiratory Nebulizer STAT RT 11/10/17 11:18 Completed Transfer Order Routine Transfer 11/10/17 Completed Medication Summary Generic Name Dose Route Start Last Admin Trade Name Freq PRN Reason Stop Dose Admin Albuterol/Ipratropium 3 ml 11/10/17 15:56 Duoneb 0.5-3 Mg/3 Ml Neb IH 12/10/17 15:55 Q4HPRN PRN SHORTNESS OF BREATH/WHEEZING Albuterol/Ipratropium 3 ml 11/10/17 19:00 Duoneb 0.5-3 Mg/3 Ml Neb IH 12/10/17 18:59 Q4HRT MENDOZA Enoxaparin Sodium 40 mg 11/11/17 10:00 Enoxaparin Sodium SQ 12/11/17 09:59 DAILY MENDOZA Guaifenesin/Dextromethorphan 5 ml 11/10/17 17:41 Robitussin-Dm Syrup PO 12/10/17 17:40 Q4H PRN PRN COUGH Azithromycin 500 mg in 250 mls @ 250 mls/hr 11/10/17 16:15 11/10/17 17:55 Zithromax 500 Mg/ 250 Ml Nacl Premix IV 12/10/17 16:14 250 mls/hr Q24H10 MENDOZA Administration Ceftriaxone Sodium/Dextrose 1 g in 50 mls @ 100 mls/hr 11/11/17 10:00 Rocephin 1 Gm-D5w 50 Ml Bag IV 12/11/17 09:59 Q24H10 MENDOZA Insulin Aspart 0 unit 11/10/17 15:56 Novolog Insulin SQ 12/10/17 15:55 UD PRN HYPERGLYCEMIA Methylprednisolone Sodium Succinate 80 mg 11/10/17 22:00 Solu-Medrol 125 Mg IV 12/10/17 21:59 Q8HT MENDOZA Fluticasone/Salmeterol 2 puff 11/10/17 19:00 Advair Hfa 115/21 Common Canister* IH 12/10/17 18:59 BIDRT MENDOZA Spironolactone 25 mg 11/10/17 22:00 Aldactone 25 Mg PO 12/10/17 21:59 TID MENDOZA Tiotropium [place] 1 ea 11/11/17 10:00 Spiriva 18 Mcg/Cap Inhaler IH 12/11/17 09:59 DAILY MENDOZA Discontinued Medications Generic Name Dose Route Start Last Admin Trade Name Martín PRN Reason Stop Dose Admin Albuterol/Ipratropium 3 ml 11/10/17 11:17 11/10/17 11:30 Duoneb 0.5-3 Mg/3 Ml Neb IH 11/10/17 11:18 3 ml STAT ONE Administration Albuterol/Ipratropium Confirm 11/10/17 11:31 Duoneb 0.5-3 Mg/3 Ml Neb Administered 11/10/17 11:32 Dose 3 ml IH .STK-MED ONE Ceftriaxone Sodium/Dextrose 1 g in 50 mls @ 100 mls/hr 11/10/17 14:27 18:07 Rocephin 1 Gm-D5w 50 Ml Bag IV 11/10/17 14:56 100 mls/hr STAT STA Administration Ceftriaxone Sodium/Dextrose Confirm 11/10/17 18:06 Rocephin 1 Gm-D5w 50 Ml Bag Administered 11/10/17 18:07 Dose 1 g in 50 mls @ ud IV .STK-MED ONE Methylprednisolone Sodium Succinate 125 mg 11/10/17 11:17 11/10/17 11:52 Solu-Medrol 125 Mg IV 11/10/17 11:18 125 mg STAT ONE Administration Methylprednisolone Sodium Succinate Confirm 11/10/17 11:52 Solu-Medrol 125 Mg Administered 11/10/17 11:53 Dose 125 mg .ROUTE .STK-MED ONE Lab/Rad Data: Laboratory Result Diagrams 11/10/17 11:40 11/10/17 11:40 Laboratory Results 11/10/17 11/10/17 11/10/17 Range/Units 11:40 11:40 11:40 WBC 7.7 (4.0-10.5) K/mm3 RBC 4.89 (4.1-5.6) M/mm3 Hgb 13.2 (12.5-18.0) gm/dl Hct 40.8 L (42-50) % MCV 83.4 (78-100) fl MCH 27.0 (26-32) pg MCHC 32.4 (32-36) g/dl RDW 14.8 H (11.5-14.0) % Plt Count 198 (150-450) K/mm3 MPV 8.9 (6-9.5) fl Segmented Neutrophils 55 (36.-66.) % Lymphocytes (Manual) 38 (24-44) % Monocytes (Manual) 6 (0.0-12.0) % Eosinophils (Manual) 1 (0.00-3.0) % Differential Comment NORMAL Platelet Estimate NORMAL (NORMAL) D-Dimer 543.17 H* (215-500) ng/mL VBG pH (7.32-7.42) VBG pCO2 at Pat Temp (42-55) mm/Hg VBG pO2 at Pat Temp (25-40) mm/Hg VBG HCO3 (22-28) meq/L VBG O2 Sat ([place]osal[place]) (95-100) VBG Base Excess (-2.0-2.0) VBG Hemoglobin VBG Carboxyhemoglobin (0.0-6.9) % T HGB POC Potassium (3.5-5.1) Sodium 135 L (137-145) mmol/L Potassium 4.3 (3.5-5.1) mmol/L Chloride 98 (98-107) mmol/L Carbon Dioxide 29 (22-30) mmol/L Anion Gap 12.2 (5-15) MEQ/L BUN 11 (9-20) mg/dL Creatinine 0.66 (0.66-1.25) mg/dL Estimated GFR > 60 ML/MIN Glucose 147 H (74-106) mg/dL Calcium 9.2 (8.4-10.2) mg/dL Total Bilirubin 0.90 (0.2-1.3) mg/dL AST 30 (17-59) U/L ALT 22 (0-50) U/L Alkaline Phosphatase 64 (38-126) U/L NT-Pro-B Natriuret Pep 21.2 (0-900) pg/mL Serum Total Protein 7.2 (6.3-8.2) g/dL Albumin 3.7 (3.5-5.0) g/dL 11/10/17 Range/Units 11:17 WBC (4.0-10.5) K/mm3 RBC (4.1-5.6) M/mm3 Hgb (12.5-18.0) gm/dl Hct (42-50) % MCV (78-100) fl MCH (26-32) pg MCHC (32-36) g/dl RDW (11.5-14.0) % Plt Count (150-450) K/mm3 MPV (6-9.5) fl Segmented Neutrophils (36.-66.) % Lymphocytes (Manual) (24-44) % Monocytes (Manual) (0.0-12.0) % Eosinophils (Manual) (0.00-3.0) % Differential Comment Platelet Estimate (NORMAL) D-Dimer (215-500) ng/mL VBG pH 7.44 H (7.32-7.42) VBG pCO2 at Pat Temp 43 (42-55) mm/Hg VBG pO2 at Pat Temp 31 (25-40) mm/Hg VBG HCO3 29.2 H* (22-28) meq/L VBG O2 Sat (Rosalino) 70.0 L (95-100) VBG Base Excess 4.4 H (-2.0-2.0) VBG Hemoglobin 13.7 VBG Carboxyhemoglobin 2.2 (0.0-6.9) % T HGB POC Potassium 4.0 (3.5-5.1) Sodium (137-145) mmol/L Potassium (3.5-5.1) mmol/L Chloride (98-107) mmol/L Carbon Dioxide (22-30) mmol/L Anion Gap (5-15) MEQ/L BUN (9-20) mg/dL Creatinine (0.66-1.25) mg/dL Estimated GFR ML/MIN Glucose (74-106) mg/dL Calcium (8.4-10.2) mg/dL Total Bilirubin (0.2-1.3) mg/dL AST (17-59) U/L ALT (0-50) U/L Alkaline Phosphatase (38-126) U/L NT-Pro-B Natriuret Pep (0-900) pg/mL Serum Total Protein (6.3-8.2) g/dL Albumin (3.5-5.0) g/dL - Progress Progress: improved Progress Note: 11/10/17 14:28 Patient is feeling better but still short of breath. Patient's CT chest shows negative pulmonary embolism (this was obtained secondary increased d-dimer and shortness of breath) moderate bilateral pleural effusions with out cardiomegaly 3. Patchy right upper lobe interstitial alveolar opacities 4. Incidental right hilar calcified nodes, fatty liver, and splenomegaly. I've discussed patient's case with Dr. Watters will admit patient to telemetry continue steroids, DuoNeb treatment, oxygen, will begin Rocephin, Zithromax,. Will order consult with Dr. ANA Cha in view of the patient's bilateral pleural effusions. - Departure Time of Disposition: 14:45 Departure Disposition: In-patient Admission Clinical Impression: COPD with exacerbation, Bilateral pleural effusion, Shortness of breath Condition: Fair Critical Care Time: No
[2017-11-10 11:39] LABS: VBG BASE EXCESS 4.4 (-2.0-2.0); VBG CARBOXYHEMOGLOBIN 2.2 % T HGB (0.0-6.9); VBG HCO3- 29.2 meq/L (22-28); VBG HEMOGLOBIN 13.7; VBG pH 7.44 (7.32-7.42)
[2017-11-10 11:43] LABS: Granulocyte Absolute (ANC) 5.34 (1.4-6.9); Hematocrit 40.8 % (42-50); Hemoglobin 13.2 gm/dl (12.5-18.0); Mean Cell Volume 83.4 fl (78-100); Mean Corpuscular Hgb Concent. 32.4 g/dl (32-36); Mean Platelet Volume 8.9 fl (6-9.5); Platelet Count 198 K/mm3 (150-450); Red Blood Count 4.89 M/mm3 (4.1-5.6); Red Cell Distribution Width 14.8 % (11.5-14.0); White Blood Count 7.7 K/mm3 (4.0-10.5)
[2017-11-10] MEDS ORDERED: solu-MEDROL 125 MG ONE (11:52)
[2017-11-10 12:05] LABS: ALBUMIN 3.7 g/dL (3.5-5.0); ALKALINE PHOSPHATASE 64 U/L (38-126); ANION GAP 12.2 MEQ/L (5-15); BLOOD UREA NITROGEN 11 mg/dL (9-20); CHLORIDE 98 mmol/L (98-107); Calcium 9.2 mg/dL (8.4-10.2); Carbon Dioxide 29 mmol/L (22-30); Creatinine 1 0.66 mg/dL (0.66-1.25); Glucose 147 mg/dL (74-106); Potassium 4.3 mmol/L (3.5-5.1); SGOT/AST 30 U/L (17-59); SGPT/ALT 22 U/L (0-50); SODIUM 135 mmol/L (137-145); Total Protein 7.2 g/dL (6.3-8.2)
[2017-11-10 12:13] LABS: NT PRO BNP 21.2 pg/mL (0-900)
--- NOTE | 2017-11-10 12:16 | XRAY ---
Indication: Cough and short of breath. Comparison: 2018. PA/lateral chest unchanged again demonstrating bibasilar infiltrates/atelectasis/effusions. Upper lungs clear. Heart is not enlarged. No new cardiopulmonary abnormalities.
[2017-11-10 13:57] LABS: Eosinophil 1 % (0.00-3.0); Lymphocytes 38 % (24-44); Monocyte 6 % (0.0-12.0); Neutrophils 55 % (36.-66.); Platelet Estimate NORMAL (NORMAL); Total Cells Counted 100
[2017-11-10] MEDS ORDERED: ROCEPHIN 1 Gm-D5w 50 ml Bag** 1 G/50 ML IVPB IV STA (14:27)
--- NOTE | 2017-11-10 14:29 | XRAY ---
Indication: Short of breath and elevated d-dimer. Cough. Multiple contiguous axial images obtained through the chest using 100 cc Isovue 370 contrast and PE protocol. Comparison: None There is satisfactory opacification of the pulmonary arteries to includes the lobar and segmental branches. No filling defect or pulmonary embolus. Heart is not enlarged. Aorta is normal in course and caliber. A few right hilar calcified nodes. No pathologic mediastinal/hilar lymphadenopathy. Examination of the lung parenchyma demonstrates moderate bilateral dependent effusions with mild bibasilar compressive atelectasis. Minimal patchy right upper lobe interstitial alveolar opacities. Tiny biapical subpleural cystic changes and left apical pleural thickening/scarring. Bony thorax intact with minimal degenerative changes throughout the spine. Limited upper abdomen demonstrate mild fatty liver and 13 cm splenomegaly. Impression: 1. Negative pulmonary embolus. 2. Moderate bilateral pleural effusions without cardiomegaly. 3. Patchy right upper lobe interstitial alveolar opacities. 4. Incidental right hilar calcified nodes, fatty liver, and splenomegaly. CT DI 23.68
[2017-11-10] MEDS ORDERED: DUONEB 0.5-3 MG/3 ml Neb IH PRN (15:56)
[2017-11-10] MEDS ORDERED: DEXTROMETHORPHAN PO PRN (17:40)
[2017-11-10] MEDS ORDERED: PROMETHAZINE PO PRN (17:40)
[2017-11-10] MEDS: Zithromax 500 MG/ 250 ML NaCl Premix 500 MG/250 ML IVPB IV SCH (17:55)
[2017-11-10] MEDS ORDERED: ROCEPHIN 1 Gm-D5w 50 ml Bag** 1 G/50 ML IVPB IV ONE (18:06)
[2017-11-10] MEDS: Advair Hfa 115/21 Common canister IH SCH (20:08)
[2017-11-10] MEDS: DUONEB 0.5-3 MG/3 ml Neb IH SCH ×2 (20:08→23:54)
[2017-11-10] MEDS: Aldactone 25 MG PO SCH (22:05)
[2017-11-10] MEDS: NovoLOG Insulin SQ PRN (22:05)
[2017-11-10] MEDS: solu-MEDROL 125 MG IV SCH (22:05)
[2017-11-11] MEDS: DUONEB 0.5-3 MG/3 ml Neb IH SCH ×5 (03:55→19:35)
[2017-11-11 05:38] LABS: Granulocyte Absolute (ANC) 7.79 (1.4-6.9); Mean Cell Volume 83.2 fl (78-100); Mean Corpuscular Hemoglobin 26.4 pg (26-32); Mean Corpuscular Hgb Concent. 31.7 g/dl (32-36); Mean Platelet Volume 9.4 fl (6-9.5); Platelet Count 221 K/mm3 (150-450); Red Blood Count 4.93 M/mm3 (4.1-5.6); Red Cell Distribution Width 14.6 % (11.5-14.0); White Blood Count 8.9 K/mm3 (4.0-10.5)
[2017-11-11 06:21] LABS: Lymphocytes 7 % (24-44); Neutrophils 93 % (36.-66.); Platelet Estimate NORMAL (NORMAL); Total Cells Counted 100
[2017-11-11] MEDS: solu-MEDROL 125 MG IV SCH ×3 (06:43→22:56)
[2017-11-11] MEDS ORDERED: Spiriva 18 Mcg/Cap Inhaler IH ONE (06:49)
[2017-11-11] MEDS: Spiriva 18 Mcg/Cap Inhaler IH SCH (06:50)
[2017-11-11] MEDS: Advair Hfa 115/21 Common canister IH SCH ×2 (06:50→19:35)
[2017-11-11 07:07] LABS: ALBUMIN 3.6 g/dL (3.5-5.0); ALKALINE PHOSPHATASE 61 U/L (38-126); BLOOD UREA NITROGEN 15 mg/dL (9-20); CHLORIDE 102 mmol/L (98-107); Calcium 9.3 mg/dL (8.4-10.2); Carbon Dioxide 26 mmol/L (22-30); Creatinine 1 0.52 mg/dL (0.66-1.25); Glucose 227 mg/dL (74-106); Potassium 4.3 mmol/L (3.5-5.1); SGOT/AST 19 U/L (17-59); SGPT/ALT 20 U/L (0-50); SODIUM 137 mmol/L (137-145); Total Protein 6.9 g/dL (6.3-8.2)
--- NOTE | 2017-11-11 07:43 | HP ---
CHIEF COMPLAINT: Shortness of breath. 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 He reports he will be here until December. He has had previous evaluation at this facility for what was felt to be an exacerbation of chronic obstructive pulmonary disease within the last month treated and released. Apparently he had a lot of leg swelling at that time. His sugar was up and he was placed on diabetic medication. He has been checking his sugars twice daily and they have been running in the 80's to 120 range without any medication presently. He reports he had an episode of pleural effusion approximately seven years ago which were tapped and got approximately a liter of fluid off of beer-colored fluid according to him. At that time he was improved but he does not know why it was there. The patient reports that he does not smoke. He is however an ex-smoker. He does not drink. PAST MEDICAL/SURGICAL HISTORY: Otherwise unremarkable other than surgeries for his knee and shoulder. HOME MEDICATIONS: Currently include prednisone, Albuterol, Spiriva, Ventolin and Symbicort. ALLERGIES: NKDA. PHYSICAL EXAMINATION: The patient initially was dyspneic in the emergency room. HEENT: Normocephalic, atraumatic. Pupils equal round reactive to light. Extraocular movements intact. Oropharynx is pink and moist. VITAL SIGNS: On admission to the emergency room showed temperature 98.8F, pulse 112, respiratory rate 24, blood pressure 128/97. O2 saturation 90%. NECK: Supple without lymphadenopathy, thyromegaly or JVD. CHEST: Diminished air movement but presently there is no significant wheezes heard. HEART: Regular rate and rhythm without significant murmurs, rubs or gallops. ABDOMEN: Somewhat protuberant. No palpable masses were felt. EXTREMITIES: Without clubbing, cyanosis or edema. There is a bit of a rash on both lower extremities. NEUROLOGIC: The patient is alert and oriented x3 with no focal deficits noted. LAB DATA AND TESTS: His evaluations include chest x-ray and followed by CT scan per pulmonary embolism protocol due to slightly elevated D-dimer and hypoxia. CT scan was negative for pulmonary embolism however did show bilateral pleural effusions without cardiomegaly. There was a patchy right upper lobe interstitial alveolar infiltrate. Right hilar calcified nodules, fatty liver and splenomegaly. The patient's venous blood gas showed a pH of 7.44, pCO2 of 43. His white blood cell count 7,700, hemoglobin 40.8, PLT count 198,000. There appears to be no significant left shift. His D-dimer as noted above was slightly elevated at 543. Glucose 147 nonfasting, BUN 11, creatinine 0.66. Electrolytes were normal. Liver enzymes were normal. ProBNP was normal. ASSESSMENT: A patient with hypoxia and pleural effusions. The patient also has history of chronic obstructive pulmonary disease and asthma although he does not appear to be in any significant distress from that aspect. I am more concerned about his pleural effusions. We have consulted pulmonary, Dr. Fernando Cha, who said he will be in to see the patient tomorrow. In the meantime the patient has been placed on Solu-Medrol 80 mg every 8 hours and Rocephin, Zithromax empirically for possible pneumonia although he is afebrile with normal white blood cell count. We are placing him on Spironolactone 25 mg every 8 hours p.o. and we will check echocardiogram to check out his ejection fraction. He will be monitored closely otherwise.
[2017-11-11] MEDS: ENOXAPARIN SODIUM SQ SCH (10:48)
[2017-11-11] MEDS: Aldactone 25 MG PO SCH ×3 (10:48→22:56)
[2017-11-11] MEDS: Zithromax 500 MG/ 250 ML NaCl Premix 500 MG/250 ML IVPB IV SCH (10:48)
[2017-11-11] MEDS: ROCEPHIN 1 Gm-D5w 50 ml Bag** 1 G/50 ML IVPB IV SCH (10:48)
[2017-11-11] MEDS: NovoLOG Insulin SQ PRN ×3 (12:00→22:57)
--- NOTE | 2017-11-11 16:50 | XRAY ---
Indication: Evaluate ascites. Two-dimensional 4 quadrant abdominal sonogram performed. There is no free fluid/ascites.
[2017-11-12] MEDS: DUONEB 0.5-3 MG/3 ml Neb IH SCH ×7 (00:25→23:54)
[2017-11-12] MEDS: solu-MEDROL 125 MG IV SCH (06:21)
[2017-11-12] MEDS: Spiriva 18 Mcg/Cap Inhaler IH SCH (07:42)
[2017-11-12] MEDS: Advair Hfa 115/21 Common canister IH SCH ×2 (07:42→19:19)
[2017-11-12] MEDS: NovoLOG Insulin SQ PRN ×3 (08:12→22:05)
--- NOTE | 2017-11-12 08:15 | CONS ---
CONSULT DATE: 11/11/2017 HISTORY: Miles Mckeon is a 62 year-old male. He presented with increasing leg edema and worsening of his shortness of breath. Presently he is on oxygen therapy. He has improved with diuresis and his leg edema is improved. He still has exertional dyspnea. The patient is a former smoker and has 60 pack year smoking history. He had CT scan of the chest done that ruled out pulmonary embolism. However he had bilateral pleural effusion. The patient has some interstitial lung changes in the right upper lobe. It appears that the patient has left greater than right effusion. 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 PAST MEDICAL HISTORY: Chronic obstructive pulmonary disease. History of perfusion status post thoracentesis. No history of coronary artery disease or diabetes. PERSONAL HISTORY: The patient lives at home though presently visiting from [place]. He works for the [employer] and exposed to asbestos. HOME MEDICATIONS: Includes Albuterol, prednisone, Spiriva, Ventolin, Symbicort. ALLERGIES: NKDA. REVIEW OF SYSTEMS: As above and as per history of present illness. PHYSICAL EXAMINATION: Vital signs are normal. Oxygen by nasal cannula. HEENT: Unremarkable. Normocephalic, nonicteric. Throat clear. Small oropharynx. NECK: No lymphadenopathy. CHEST: Bilateral breath sounds diminished anterior bases, rhonchi. HEART: Regular S1, S2. ABDOMEN: Obese, protuberant, soft, nontender. EXTREMITIES: Some residual edema present with wrinkles suggestive of previous significant edema. LAB DATA AND TESTS: CT scan of the chest and chest x-ray noted. On 11/10/2017, CMP noted. The pH 7.44, pCO2 43. D-dimer was positive 543 (no pulmonary embolism). On 11/10/2017, CBC noted. IMPRESSION: I agree with current treatment with bronchodilators and steroids. Echocardiogram to assess his cardiac function. Bilateral effusion. Obtained decubitus chest x-ray and include abdomen to investigate further. I recommend cell count, serum total protein, AFB smear, sputum culture, blood culture and cytology. Check abdominal sonogram to see if he has ascites and consider work up with echocardiogram to investigate cardiac especially if he is in diastolic dysfunction or systolic heart failure. I wish to thank Dr. Watters for giving me this opportunity.
[2017-11-12] MEDS: ROCEPHIN 1 Gm-D5w 50 ml Bag** 1 G/50 ML IVPB IV SCH (11:06)
[2017-11-12] MEDS: Zithromax 500 MG/ 250 ML NaCl Premix 500 MG/250 ML IVPB IV SCH (11:06)
[2017-11-12] MEDS: ENOXAPARIN SODIUM SQ SCH (11:06)
[2017-11-12] MEDS: Aldactone 25 MG PO SCH ×3 (11:06→21:51)
--- NOTE | 2017-11-12 11:11 | XRAY ---
Indication: Status post left thoracentesis. Comparison: One day earlier. Portable chest demonstrates clearing of the previous left effusion without pneumothorax. Remaining chest including small right base effusion/atelectasis unchanged.
[2017-11-12] MEDS: solu-MEDROL 40 MG IV SCH ×2 (16:03→21:51)
[2017-11-13] MEDS: DUONEB 0.5-3 MG/3 ml Neb IH SCH ×3 (03:09→10:49)
[2017-11-13] MEDS: solu-MEDROL 40 MG IV SCH ×2 (06:28→14:19)
[2017-11-13] MEDS: Advair Hfa 115/21 Common canister IH SCH (06:38)
[2017-11-13] MEDS: Spiriva 18 Mcg/Cap Inhaler IH SCH (06:39)
[2017-11-13 07:13] LABS: BF Color Pale Yellow
[2017-11-13] MEDS: NovoLOG Insulin SQ PRN ×2 (07:47→12:33)
[2017-11-13] MEDS: ROCEPHIN 1 Gm-D5w 50 ml Bag** 1 G/50 ML IVPB IV SCH (09:20)
[2017-11-13] MEDS: Aldactone 25 MG PO SCH ×2 (09:20→14:18)
[2017-11-13] MEDS: ENOXAPARIN SODIUM SQ SCH (09:20)
[2017-11-13] MEDS: Zithromax 500 MG/ 250 ML NaCl Premix 500 MG/250 ML IVPB IV SCH (09:20)
[2017-11-13] MEDS: Robitussin-Dm Syrup PO PRN ×2 (09:20→14:19)
--- NOTE | 2017-11-13 10:45 | XRAY ---
Indication: Pleural effusion. Thoracentesis for diagnostic purposes. Informed consent obtained. Initial sonographic imaging of the left lower back was performed for localization. Skin was prepped and draped in sterile fashion. 1% lidocaine plain used for local anesthesia. Tiny skin incision made. Then a 5 [employer] thoracentesis catheter with introducer needle was inserted into the left hemithorax. Small flash of effusion seen in the syringe at which point the outer catheter was advanced and the inner needle removed. Catheter was then connected to a Vacutainer. Approximately 500 cc of milky/cloudy exudative fluid was aspirated. Fluid was sent to laboratory for analysis. Repeat sonogram demonstrates effusion clearing. Hemostasis achieved using digital pressure over the puncture site. Small Band-Aid applied. Postoperative instructions and orders given. Postprocedure chest radiograph pending. Impression: Technically successful left chest thoracentesis using ultrasound guidance for diagnostic purpose. Approximately 500 cc aspirated. No immediate complications.
--- NOTE | 2017-11-13 10:50 | XRAY ---
Indication: Bilateral pleural effusions. Comparison: CT chest 1 day earlier. Left and right decubitus chest radiograph demonstrates pleural effusion layering bilaterally, left greater than right. Remaining chest unchanged.
[2017-11-13 10:53] VITALS: O2SAT 93
[2017-11-13 11:42] VITALS: BP 145/89; PULSE 90
--- NOTE | 2017-11-13 13:22 | PCM.DCORD ---
- Discharge Discharge Date: 11/13/17 Condition: Good Prescriptions: New Spironolactone 25 mg [Aldactone 25 MG] 25 mg PO TID 30 Days #90 tablet Continue Tiotropium [place] [Spiriva] 18 mcg IH DAILY Promethazine/Dextromethorphan [Promethazine-Dm Syrup] 5 ml PO Q4HPRN PRN PRN Reason: Cough Prednisone 20 mg [Deltasone 20 mg] 10 mg PO DAILY Budesonide/Formoterol Fumarate [Symbicort 160-4.5 Mcg Inhaler] 1 puff IH DAILY Albuterol Sulfate [Ventolin Hfa] 1 puff IH DAILY Albuterol/Ipratropium 3ml Neb* [DUONEB 0.5-3 MG/3 ml Neb] 3 ml NEB Q6H PRN PRN #120 ampul.neb PRN Reason: Shortness Of Breath/Wheezing Instructions: Chronic Obstructive Pulmonary Disease (COPD), Including Emphysema , Oxygen Therapy, Adult (DC), Pleural Effusion (DC)
--- NOTE | 2017-11-13 13:33 | CONS ---
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 The patient was noted to have significant hypoxemia. CT chest revealed no evidence of pulmonary embolism but the patient had bilateral pleural effusions. He was seen by Dr. Cabrera in consultation the day before. The patient underwent thoracocentesis yesterday. I have reviewed the results and it appears to be exudative effusion by ADH criteria alone although with high blood glucose levels. I evaluated the patient today. He is awake, comfortable, appears mildly tachypneic and continues to require oxygen at 2 liters. PHYSICAL EXAMINATION: Vital signs are noted. HEENT: Normocephalic. Oral exam shows small oropharynx, NECK: Short. CVS: First and second heart sounds are normal, regular, rhythmic. RESPIRATORY: Shows diminished breath sounds, basilar crackles are heard. ABDOMEN: Soft. EXTREMITIES: No significant edema is noted. LABORATORY DATA AND TESTS: Radiology tests were all reviewed. ASSESSMENT: This is a 62 year old male who has been admitted with: 1) Bilateral pleural effusions, exudative in character: The patient reports having similar procedure done about five years ago where he required thoracentesis. 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 In any event the patient requires definitive procedure of VATS with decortication in order to ascertain the etiology of his effusion but also to rule out rare possibility of malignancy as well. [place] and wishes to travel back and will be followed by his primary care physician. 2) HYPOXEMIA: Remains hypoxic at rest. Will set up for additional oxygen 3) OBESITY. 4) DIABETES MELLITUS? RECOMMENDATIONS: I had a long discussion with the patient. I explained to him the need for VATS and decortication. The patient is in agreement. However he wishes to have these procedures performed in [place] where he resides. I have obtained his primary care physician's phone number which area code [phone]. His original physician, Dr. Salcedo, has retired and the patient has an appointment next Friday to see Dr. Emmanuel Mcconnell. I will attempt to call this physician to give him information regarding the patient's current stay and recommendations. Attempt to arrange oxygen concentrator in route along with supplemental oxygen cylinder for back up. I advised the patient to call our facility upon reaching home safely to inform us about his safe arrival home. If any questions regarding Miles Mckeon's care remain unanswered, I can be reached at my office area code [phone].
--- NOTE | 2017-11-14 15:42 | ECHO ---
Transthoracic echocardiographic examination and color Doppler was done on 11/11/2017. INDICATION: Pleural effusion. IMPRESSION: 1) NO REGIONAL WALL MOTION ABNORMALITY. ESTIMATED GLOBAL LEFT VENTRICULAR EJECTION FRACTION OF AROUND 60%. 2) TRACE TRICUSPID REGURGITATION. RIGHT VENTRICULAR SYSTOLIC PRESSURE OF 16 MM OF MERCURY. 3) TRACE MITRAL REGURGITATION. 4) TRACE PERICARDIAL EFFUSION. 5) TRACE PULMONIC INSUFFICIENCY. The left ventricle is visualized and demonstrated adequate motion of all the segments. Estimated global left ventricular ejection fraction around 60%. There is mild left ventricular hypertrophy. The mitral valve is seen and this opens adequately. There is trace mitral regurgitation. Left atrium is upper limits of normal. The aortic valve is sclerotic but opens adequately. The gradient across the aortic valve is about 13 mm of Mercury. The right side chambers are normal. There is trace tricuspid regurgitation. The right ventricular systolic pressure of 16 mm of Mercury. There is also trace pulmonic insufficiency and trace pericardial effusion.
== END 2017-11-13 14:50 | disposition home or self-care (01) | DRG 205 ==
LOC: ED 11:06 → MED SURG 14:55
PROVIDERS: ADMIT Family Medicine; ATTEND Family Medicine
DX: R09.02 Hypoxemia (principal); J18.9 Pneumonia, unspecified organism; J90 Pleural effusion, not elsewhere classified; R18.8 Other ascites; J44.9 Chronic obstructive pulmonary disease, unspecified; J45.909 Unspecified asthma, uncomplicated
CPT/HCPCS: 32557; 36000; 36415; 71045; 71046; 71047; 71260; 76705; 80053; 82805; 82945; 82962; 83615; 83880; 85025; 85379; 87040; 87070; 87205; 88305; 88309; 89050; 93005; 93041; 93306; 94150; 94640; 94760; 96374; 99285; J0456; J0696; J1650; J2920; J2930; A9270-GY